=== PATIENT | female | born 1965 | race Caucasian/White ===

== ENCOUNTER 2022-03-03 23:46 | Observation (INO) | payer BC ==
[~2022-03-03] VITALS: Ht 165.1 cm; Wt 78.2 kg
[2022-03-04] MEDS ORDERED: ZOLOFT 50MG50 MG PO (00:01)
[2022-03-04 00:09] LABS: BASO # 0.1 K/mm3 (0.0-0.2); BASO % 0.6 % (0.0-2.0); EOS # 0.2 K/mm3 (0.0-0.7); EOS % 2.7 % (0.0-4.0); GRAN # 4.2 K/mm3 (1.4-6.5); GRAN % 54.2 % (42.2-75.2); HEMOGLOBIN 14.4 g/dl (12.5-16.0); LYMPH # 2.7 K/mm3 (1.2-3.4); LYMPH % 34.2 % (20.0-51.0); MEAN CELL VOLUME 91 fl (80.0-100.0); MEAN CORPUSCULAR HEMOGLOBIN 31 pg (27-31); MEAN CORPUSCULAR HGB CONC 34 g/dl (33.0-37.0); MEAN PLATELET VOLUME 9.9 fl (7.4-10.4); MONO # 0.6 K/mm3 (0.1-0.6); PLATELET COUNT 254 K/mm3 (130-400); RED BLOOD COUNT 4.62 M/mm3 (4.10-5.30); REDCELL DISTRIBUTION WIDTH-CV 12.9 % (11.5-14.5)
[2022-03-04] MEDS ORDERED: MAGNESIUM250 M1 PO (00:17)
[2022-03-04] MEDS ORDERED: VITAMIN D31000 IU PO (00:18)
[2022-03-04] MEDS ORDERED: NATURAL IRON65 MG PO (00:18)
[2022-03-04 00:23] LABS: ALBUMIN 4.2 gm/dL (3.5-5.0); BILIRUBIN,TOTAL 0.3 mg/dL (0.2-1.2); C-REACTIVE PROTEIN 0.57 mg/dL (0.00-0.50); CREATININE, serum 1.43 mg/dL (0.57-1.11); POTASSIUM 3.8 mmol/L (3.5-4.5); TOTAL PROTEIN 8.1 gm/dL (6.2-8.1)
[2022-03-04 00:29] LABS: TROPONIN-I 0.021 ng/mL (0.00-0.033)
[2022-03-04 02:52] LABS: PROTHROMBIN TIME 11.2 SECONDS (9.7-12.8)
--- NOTE | 2022-03-04 03:29 | NUR ---
pt brought to room from ER. pt independent in room. reports chest pain a 2/10 right now. admission assessment complete.
[2022-03-04 03:43] VITALS: BP 124/76; PULSE 69
--- NOTE | 2022-03-04 06:19 | NUR ---
paged dr jean-baptiste for consult
[2022-03-04 06:43] LABS: CHOLESTEROL RISK RATIO 3.3
[2022-03-04 06:55] LABS: TROPONIN-I 6 HR POST INITIAL 0.015 ng/mL (0.00-0.033)
[2022-03-04 08:25] VITALS: BP 106/70; PULSE 59; TEMP 98
--- NOTE | 2022-03-04 09:44 | NUR ---
NORTH met with the patient and her mother, Jefry (ph#[phone]), to discuss discharge plan. The patient lives in [place] with her youngest son, Valdo. She states that she just moved here from around [place], [place], two months ago. She reports independence with ADLs and does not have any DME. The patient states that she does not have a PCP here yet and was interested in receiving a list of local providers. NORTH provided her with that list. The patient does not have a DPOA-HC, but she was interested in obtaining a form. NORTH provided. She states that she is and has three children: Romero, Jesus, Valdo. The patient plans to return home upon discharge. No additional needs at this time. *Discharge plan: home*
[2022-03-04 11:27] VITALS: BP 133/63; PULSE 62; TEMP 97.9
--- NOTE | 2022-03-04 12:46 | NUR ---
Sushma: Ep[facility] Situation: lean specialist stopped by room on rounds Background: Pt was resting and content with her mother in the room Assessment: Pt has no needs right now. Pt appreciated the visit Recommendation: lean specialist will follow up as needed
--- NOTE | 2022-03-04 13:31 | NUR ---
PATIENT ALERT AND ORIENTED. PATIENT HERE FOR CHEST PAIN. PATIENT REPORTS HEADACHE PAIN AND NECK PAIN, RATING 4/10, REQUESTS TYLENOL. ASSESSMENT PERFORMED. MEDS ADMINISTERED. PATIENT RESTING IN BED WITH CALL LIGHT NEAR.
[2022-03-04] MEDS ORDERED: ASPI325T6 PO (15:54)
[2022-03-04] MEDS ORDERED: COLCRYS0.6 MG PO (15:59)
[2022-03-04 16:01] VITALS: BP 126/75; PULSE 63; TEMP 98
--- NOTE | 2022-03-04 17:00 | NUR ---
DISCHARGE INSTRUCTIONS PROVIDED. PATIENT EDUCATION GIVEN. IV DC'D. FOLLOW UP APPOINTMENTS DISCUSSED. MEDICATIONS REVIEWED. PATIENT DENIES ANY QUESTIONS OR CONCERNS. PATIENT ESCORTED OUT.
== END 2022-03-04 16:55 | disposition home or self-care (01) ==
LOC: COL.ER 23:46 → SURG 03-04 02:44
PROVIDERS: Emergency Medicine; Nurse Practitioner Family; ADMIT Internal Medicine
DX: R07.9 Chest pain, unspecified (principal); J90 Pleural effusion, not elsewhere classified; I49.8 Other specified cardiac arrhythmias; J45.909 Unspecified asthma, uncomplicated; R51.9 Headache, unspecified; Q60.0 Renal agenesis, unilateral; Z87.891 Personal history of nicotine dependence; Z86.16 Personal history of COVID-19; Z87.09 Personal history of other diseases of the respiratory system
CPT/HCPCS: G0378; J7030

== ENCOUNTER 2022-03-30 14:09 | Observation (INO) | payer BC ==
[~2022-03-30] VITALS: Ht 165.1 cm; Wt 86.2 kg
[~2022-03-30 14:09] MED LIST: ASPI325T6 PO; COLCRYS0.6 MG PO; MAGNESIUM250 M1 PO; NATURAL IRON65 MG PO; VITAMIN D31000 IU PO; ZOLOFT 50MG50 MG PO
[2022-03-30 14:29] LABS: BASO % 0.6 % (0.0-2.0); EOS # 0.2 K/mm3 (0.0-0.7); EOS % 2.2 % (0.0-4.0); GRAN # 4.2 K/mm3 (1.4-6.5); GRAN % 62.3 % (42.2-75.2); HEMATOCRIT 42.4 % (37.0-47.0); HEMOGLOBIN 14.2 g/dl (12.5-16.0); LYMPH % 29.1 % (20.0-51.0); MEAN CELL VOLUME 93 fl (80.0-100.0); MEAN CORPUSCULAR HEMOGLOBIN 31 pg (27-31); MEAN CORPUSCULAR HGB CONC 34 g/dl (33.0-37.0); MEAN PLATELET VOLUME 10.1 fl (7.4-10.4); MONO # 0.4 K/mm3 (0.1-0.6); MONO % 5.5 % (1.7-9.3); PLATELET COUNT 250 K/mm3 (130-400); RED BLOOD COUNT 4.58 M/mm3 (4.10-5.30); REDCELL DISTRIBUTION WIDTH-CV 13.2 % (11.5-14.5)
[2022-03-30 14:57] LABS: ALBUMIN 4.3 gm/dL (3.5-5.0); BILIRUBIN,TOTAL 0.4 mg/dL (0.2-1.2); CALCIUM 9.8 mg/dL (8.4-10.2); CREATININE, serum 1.42 mg/dL (0.57-1.11); POTASSIUM 3.8 mmol/L (3.5-4.5); TOTAL PROTEIN 7.8 gm/dL (6.2-8.1)
[2022-03-30 15:08] LABS: TROPONIN-I 0.046 ng/mL (0.00-0.033)
[2022-03-30 15:35] LABS: PROTHROMBIN TIME 11.1 SECONDS (9.7-12.8)
[2022-03-30 15:37] LABS: PARTIAL THROMBOPLASTIN TIME 37.4 SECONDS (26.0-37.0)
--- NOTE | 2022-03-30 17:30 | NUR ---
Patient arrived to room 358 via stretcher. Ambulated to bed without difficulty. Admission assessment complete. Oriented to room and policy. Denies pain/nausea/shortness of breath. Plan of care discussed for this shift to include meds/NPO at midnight/calling for questions/concerns. Verbalizes understanding. Will monitor.
[2022-03-30] MEDS ORDERED: B COMPLEX #11 TA1 PO (17:31)
[2022-03-30] MEDS ORDERED: ASPIRIN 32325 MG/TAB PO (17:32)
[2022-03-30 17:58] VITALS: BP 112/55; PULSE 69; TEMP 98.2
[2022-03-30 19:42] VITALS: BP 146/64; PULSE 67; TEMP 98.7
--- NOTE | 2022-03-30 20:30 | NUR ---
Initial shift assessment done- Tele on- SR, IV fluids of NS at 100cc/hr, Heparin drip at 9.5cc/hr, next hepxa to be drawn at 2230. Troponin of 0.062 called to [facility] NAPIER, no new orders- Will make NPO after MN for ? heart cath tomorrow.
[2022-03-31] VITALS (18 sets, daily range): BP systolic 93–154; BP diastolic 47–84; PULSE 54–78; TEMP 97.4–98.6
--- NOTE | 2022-03-31 06:08 | NUR ---
Quiet night- heparin drip at 8.5cc/hr, waiting for the 0530 hepxa result, npo for heart cath. VSS
[2022-03-31 06:33] LABS: BASO % 0.6 % (0.0-2.0); EOS # 0.2 K/mm3 (0.0-0.7); EOS % 3.3 % (0.0-4.0); GRAN # 2.4 K/mm3 (1.4-6.5); GRAN % 45.8 % (42.2-75.2); HEMOGLOBIN 13.1 g/dl (12.5-16.0); LYMPH # 2.3 K/mm3 (1.2-3.4); LYMPH % 43.8 % (20.0-51.0); MEAN CELL VOLUME 95 fl (80.0-100.0); MEAN CORPUSCULAR HEMOGLOBIN 30 pg (27-31); MEAN CORPUSCULAR HGB CONC 32 g/dl (33.0-37.0); MEAN PLATELET VOLUME 10.7 fl (7.4-10.4); MONO # 0.3 K/mm3 (0.1-0.6); MONO % 6.1 % (1.7-9.3); PLATELET COUNT 221 K/mm3 (130-400); RED BLOOD COUNT 4.32 M/mm3 (4.10-5.30); REDCELL DISTRIBUTION WIDTH-CV 13.2 % (11.5-14.5)
[2022-03-31 06:50] LABS: ALBUMIN 3.7 gm/dL (3.5-5.0); CHOLESTEROL RISK RATIO 3.4; CREATININE, serum 1.27 mg/dL (0.57-1.11); PHOSPHOROUS 3.7 mg/dL (2.3-4.7)
[2022-03-31 07:05] LABS: TROPONIN-I 0.039 ng/mL (0.00-0.033)
--- NOTE | 2022-03-31 09:39 | NUR ---
SHIFT ASSESSMENT COMPLETED AND MORNING MEDICATIONS ADMINISTERED PER ORDER. PATIENT IS ALERT AND ORIENTED X4. DENIES PAIN. PLAN FOR CARDIAC CATH TODAY. PATIENT DENIES ANY NEEDS. CALL LIGHT WITHIN REACH. HEPARIN GTT RUNNING AT 750 UNITS PER ORDER.
--- NOTE | 2022-03-31 09:51 | NUR ---
SEE MERGE FORA LLA MEDICATIONS, INTERVENTIONS AND VITALS
--- NOTE | 2022-03-31 10:45 | NUR ---
Initial visit; Patient very pleasant and was receptive to Commission Agent Livestock keeping her in her prayers. Patient also mentioned that her son was having a difficult time with her recent health issues and requested that Commission Agent Livestock keep him in her prayers also. Commission Agent Livestock wished Manda a thorough recovery and offered God's blessings.
--- NOTE | 2022-03-31 11:01 | NUR ---
PATIENT RETURNED FROM CATH PROCEDURE AT APPROX 1100. PATIENT IS DROWSY, BUT EASILY AROUSABLE. FINISHING UP ANGIOMAX. NO ACTIVE BLEEDING NOTED. RADIAL PULSES PALPABLE BILATERALLY. CALL LIGHT WITHIN REACH.
--- NOTE | 2022-03-31 11:56 | NUR ---
PATIENT HAS ORDER FOR NITRO PATCH. CURRENT BP IS 93/54, HR 63. DR. CARLSON NOTIFIED RN NOTIFIED, AWAITING RETURN CALL, WILL HOLD NITRO PATCH FOR NOW.
--- NOTE | 2022-03-31 14:13 | NUR ---
Discussed when to contact the physician for signs or symptoms of complications or TN. Also reviewed risk factors for heart disease. Covered applicable modifiable risk factors including the following: tobacco cessation, HTN, hyperlipidemia, diabetes, overweight/obesity, sedentary lifestyle, and stress/depression. Patient verbalized understanding. Referral sent to Cardiac Rehab with patient's permission. Patient scheduled for 04/08/22 for cardiac rehab initial intake.
--- NOTE | 2022-03-31 14:19 | NUR ---
PATIENT C/O CHEST PAIN 04/16. DR. CARLSON AWARE, STATES HE BELIEVES IT IS LIKELY PLEURITIC CHEST PAIN AND NOT CARDIAC RELATED. KARTHIKEYAN BEAVER UPDATED, NEW ORDER FOR EKG ENTERED, NEW ORDERS ALSO RECEIVED FOR ZOFRAN AND APAP. PATIENT DENIES FURTHER NEEDS.
--- NOTE | 2022-03-31 15:26 | NUR ---
Labor Economics Teacher attempted to meet with patient, however she was feeling sick and requested SW return at a later time.
--- NOTE | 2022-03-31 17:55 | NUR ---
RADIAL BAND REMOVED, NO BLEEDING NOTED, BAND AID APPLIED. DENIES FURTHER CHEST PAIN. SLEEPING AT THIS TIME. CALL LIGHT WITHIN REACH.
[2022-03-31 23:57] LABS: CARDIOLIPIN IGG ANTIBODY <20.0 CU (<=20.0); CARDIOLIPIN IGM ANTIBODY <20.0 CU (<=20.0)
[2022-04-01] VITALS (8 sets, daily range): BP systolic 109–138; BP diastolic 55–84; PULSE 60–80; TEMP 97.7–98.1
[2022-04-01 00:48] LABS: BETA-2 GPI IGG AABS <20.0 CU (<=20.0); BETA-2 GPI IGM AABS <20.0 CU (<=20.0)
[2022-04-01 06:57] LABS: BASO % 0.3 % (0.0-2.0); EOS # 0.2 K/mm3 (0.0-0.7); EOS % 2.5 % (0.0-4.0); GRAN # 4.5 K/mm3 (1.4-6.5); GRAN % 66.9 % (42.2-75.2); HEMATOCRIT 37.1 % (37.0-47.0); HEMOGLOBIN 12.2 g/dl (12.5-16.0); LYMPH # 1.5 K/mm3 (1.2-3.4); LYMPH % 22.7 % (20.0-51.0); MEAN CELL VOLUME 94 fl (80.0-100.0); MEAN CORPUSCULAR HEMOGLOBIN 31 pg (27-31); MEAN CORPUSCULAR HGB CONC 33 g/dl (33.0-37.0); MEAN PLATELET VOLUME 10.5 fl (7.4-10.4); MONO # 0.5 K/mm3 (0.1-0.6); MONO % 7.2 % (1.7-9.3); PLATELET COUNT 206 K/mm3 (130-400); RED BLOOD COUNT 3.97 M/mm3 (4.10-5.30); REDCELL DISTRIBUTION WIDTH-CV 13.2 % (11.5-14.5)
[2022-04-01 07:06] LABS: ALBUMIN 3.3 gm/dL (3.5-5.0); CALCIUM 8.8 mg/dL (8.4-10.2); CREATININE, serum 1.29 mg/dL (0.57-1.11); MAGNESIUM 1.9 mg/dL (1.6-2.6); PHOSPHOROUS 3.6 mg/dL (2.3-4.7); POTASSIUM 4.1 mmol/L (3.5-4.5)
[2022-04-01] MEDS ORDERED: BRILINTA90 MG PO (09:09)
[2022-04-01] MEDS ORDERED: ASPIRIN E.C. 8181 MG PO (09:10)
[2022-04-01] MEDS ORDERED: LIPITOR 80MG80 MG PO (09:10)
--- NOTE | 2022-04-01 09:54 | NUR ---
Sponge Packer attended clinical rounds with the team and patient to discharge home today. Patient lives alone in [place] but advised her nineteen year old son has been visiting and staying with her recently. Patient is employed at [employer] and obtains medications from [facility] with no difficulties. Patient does not use any DME and is independent with ADLS. Patient does not have DPOA-HC but requested to take the form home so she can consider who to designate. SW provided form along with education on how to complete the form. Discharge Plan: Home
--- NOTE | 2022-04-01 10:24 | NUR ---
SHIFT ASSESSMENT COMPLETED AND MORNING MEDICATIONS ADMINISTERED PER ORDER. PATIENT IS ALERT AND ORIENTED X4. C/O SOME PAIN 1/10 TO HER BACK AND CHEST, WILL GIVE PRN APAP PER ORDER. VSS. NO HEMATOMA NOTED TO RIGHT RADIAL SITE, RADIAL PULSES PALPABLE. NO BLEEDING NOTED. REQUESTED FLU SHOT, WILL ADMINISTER PRIOR TO DISCHARGE. DENIES FURTHER NEEDS. CALL LIGHT IN PLACE.
--- NOTE | 2022-04-01 10:57 | NUR ---
THIS RN AT BEDSIDE TO ADMINISTER FLU SHOT. PATIENT STATES "MY ARM IS BRUISED." THIS RN NOTED HEMATOMA TO RIGHT RADIAL SITE. MANUAL PRESSURE APPLIED, PRESSURE DRESSING APPLIED. NO FURTHER GROWTH OF HEMATOMA NOTED FOLLOWING PRESSURE APPLICATION. PATIENT INSTRUCTED TO NOT MOVE WRIST. CARDIOLOGY PAGED, AWAITING RETURN CALL.
--- NOTE | 2022-04-01 13:59 | NUR ---
DR. CARLSON UPDATED AT APPROX 1045 REGARDING HEMATOMA. PATIENT'S ARM WAS NOTED WITH BRUISING AND A RAISED, FIRM AREA TO THE WRIST. PER DR. CARLSON, SUPERVISOR CONDITIONING YARD RN TO LOOK AT SITE, IF HEMATOMA DOESN'T GROW BY THIS AFTERNOON, PATIENT IS OKAY TO DISCHARGE. FOLLOWING PRESSURE APPLICATION, BANDAGE, AND ICE, SWELLING AND FIRMNESS TO SITE REDUCED. NO GROWTH OF HEMATOMA NOTED. PATIENT DENIES ANY FURTHER NEEDS. WILL DISCHARGE PATIENT PER ORDER.
--- NOTE | 2022-04-01 15:35 | NUR ---
PER CARDIOLOGY, PATIENT IS GOOD TO DISCHARGE. DISCHARGE EDUCATION PROVIDED TO PATIENT ON POST CATH CARE, MEDICATIONS, FOLLOW UPS, AND DIAGNOSIS. QUESTIONS ANSWERED. PATIENT STATES SHE HAS CONCERNS ABOUT GOING HOME AND WOULD LIKE ANOTHER RN TO ASSESS HER CATH SITE PRIOR TO DISCHARGE. MILES AGUIAR ASSESSED PATIENT'S CATH SITE, DENIES SIGNS OF FURTHER COMPLICATIONS. IVS REMOVED WITH CATHETERS INTACT, MINIMAL BLEEDING NOTED, GAUZE DRESSING APPLIED. PATIENT ESCORTED OUT BY VIA [facility] STAFF.
[2022-04-06 10:26] LABS: ANTI-THROMBIN III 114 % (72-128)
== END 2022-04-01 15:35 | disposition home or self-care (01) ==
LOC: COL.ER 14:09 → MEDICAL 15:28
PROVIDERS: Emergency Medicine; Nurse Practitioner Family; ADMIT Internal Medicine
DX: I25.10 Atherosclerotic heart disease of native coronary artery without angina pectoris (principal); I21.4 Non-ST elevation (NSTEMI) myocardial infarction; J90 Pleural effusion, not elsewhere classified; I31.39 Other pericardial effusion (noninflammatory); Q60.0 Renal agenesis, unilateral; J45.909 Unspecified asthma, uncomplicated; I31.9 Disease of pericardium, unspecified; I74.2 Embolism and thrombosis of arteries of the upper extremities; I08.1 Rheumatic disorders of both mitral and tricuspid valves; Z86.16 Personal history of COVID-19
CPT/HCPCS: C1725; C1769; C1874; C1887; C9600; G0008; G0378; J0583; J1644; J2250; J2405; J3010; J7030; J7120; Q9967

== ENCOUNTER 2022-06-03 15:00 | Outpatient (RCR) | payer BC ==
[~2022-06-03 15:00] MED LIST changes: +ASPIRIN 32325 MG/TAB PO; +ASPIRIN E.C. 8181 MG PO; +B COMPLEX #11 TA1 PO; +BRILINTA90 MG PO; +LIPITOR 80MG80 MG PO
== END 2022-06-06 | disposition home or self-care (01) ==
LOC: COL.CR
DX: Z48.812 Encounter for surgical aftercare following surgery on the circulatory system (principal); Z95.5 Presence of coronary angioplasty implant and graft

== ENCOUNTER 2022-06-09 15:17 | Outpatient (RCR) | payer BC | END 2022-07-07 | disposition home or self-care (01) | LOC: COL.CR | DX: Z48.812 Encounter for surgical aftercare following surgery on the circulatory system (principal); Z95.5 Presence of coronary angioplasty implant and graft ==